=== PATIENT | male | born 1960 | race Asian ===

== ENCOUNTER → 2017-04-03 | Outpatient (CLI) | payer OTHER | END | disposition home or self-care (01) | LOC: C.ULTR 06:27 | DX: R10.9 Unspecified abdominal pain (principal) ==

== ENCOUNTER → 2017-05-05 | Outpatient (CLI) | payer OTHER ==
--- NOTE | 2017-05-05 16:40 | EXERCISE STRESS ECHO ---
*NOTICE TO RECEIVING DEMOCRAT AGENCY This information is strictly Confidential and protected under [place] law. [place] law prohibits you from making any further disclosure of this information unless further disclosure is expressly permitted by the written consent of the person to whom it pertains or is authorized by law. A general authorization for the release of medical or other information is not sufficient for this purpose. Hospital accepts no responsibility if the information is made available to any other person, INCLUDING THE PATIENT. Interpretation Summary * Name: YUE DAWKINS Study Date: 05/05/2017 10:22 AM BP: 116/71 mmHg * Patient Location: [facility] HR: 94 * : 1960 (M/d/yyyy) Gender: Male Height: 66 in * Age: 56 yrs Ethnicity: Weight: 222 lb * Ordering Physician: Benjamin Barragan * Referring Physician: Benjamin Barragan * Performed By: Celi Shook RDCS * * Reason For Study: Epigastric pain, rule out myocardial infarction * BSA: 2.1 m2 * -- Conclusions -- * Stress Echo: * 1. Negative stress echo for ischemia at 91 % MPHR. * 2. Negative exercise ECG for ischemia at 91 % MPHR. * 3. Appropriate blood pressure response to exercise. * 4. No arrhythmia. * 5. Study terminated due to fatigue. No chest pain reported. * 6. Fair exercise tolerance. * Echo: * 1. Normal left ventricular size and systolic function. EF 60-65%. No regional wall motion abnormalities. No left ventricular hypertrophy. Type 1 diastolic dysfunction. * 2. No significant valvular abnormalities visualized. * 3. Normal estimated right ventricular systolic pressure. * 4. No prior study available for comparison. Procedure Details * ECHOEX, CPT #[id number] * ECHO DOPPLER, CPT #[id number] * ECHO COLOR FLOW, CPT #[id number] Left Ventricle * The left ventricle is normal in size. * There is normal left ventricular wall thickness. * Left ventricular systolic function is normal. * Resting wall motion: Normal. Stress wall motion: Appropriate increase in Left ventricular systolic function and decrease in cavity size. No stress induced segmental wall motion abnormalities. * The left ventricular ejection fraction increases normally with stress. The left ventricular end-systolic cavity size reduces post-stress (normal response). The left ventricular wall motion with stress is normal. Right Ventricle * The right ventricle is normal in size and function. * The right ventricular systolic function is normal as assessed by tricuspid annular plane systolic excursion (TAPSE) (normal >1.5 cm). Atria * The left atrial size is normal. * Right atrial size is normal. * There is no evidence of atrial septal defect, but resolution does not allow assessment for a patent foramen ovale. Mitral Valve * The mitral valve leaflets appear normal. There is no evidence of stenosis, fluttering, or prolapse. * There is trace mitral regurgitation. Tricuspid Valve * The tricuspid valve is not well visualized, but is grossly normal. * There is no tricuspid stenosis. * There is trace tricuspid regurgitation. Aortic Valve * The aortic valve is trileaflet. * No hemodynamically significant valvular aortic stenosis. * No aortic regurgitation is present. Pulmonic Valve * The pulmonic valve is not well seen, but is grossly normal. * There is no significant pulmonary regurgitation. Great Vessels * The aortic root is normal size. * Normal pulmonary venous flow pattern.. Pericardium * There is no pericardial effusion. Stress Parameters * NSR at 76 bpm. * The stress ECG response was normal * No arrhythmia were noted with stress. * The stress portion of this study was personally supervised by the undersigned interpreting physician. * Rest heart rate was '94' BPM. * Rest blood pressure was '116/71' * Maximum heart rate achieved was 151 bpm. * Maximum heart rate was 91 % of maximum age-predicted heart rate. * Maximum blood pressure was '164/84' * Total exercise time was '06:22' * Maximum exercise MET level achieved was '7.50' METS * Maximum treadmill speed was '3.40' miles per hour. * Maximum treadmill elevation was '14.00'% grade. MMode 2D Measurements and Calculations IVSd 1.1 cm LVIDd 4.3 cm LVIDs 2.4 cm LVPWd 1.0 cm IVS/LVPW 1.1 FS 42.8 % EDV(Teich) 81.6 ml ESV(Teich) 21.0 ml EF(Teich) 74.3 % EDV(cubed) 77.7 ml ESV(cubed) 14.5 ml EF(cubed) 81.3 % LV mass(C)d 155.1 grams LV mass(C)dI 74.2 grams/m\S\2 SV(Teich) 60.6 ml SI(Teich) 29.0 ml/m\S\2 SV(cubed) 63.2 ml SI(cubed) 30.2 ml/m\S\2 Ao root diam 2.7 cm Ao root area 5.7 cm\S\2 ACS 2.0 cm LA dimension 4.0 cm LA/Ao 1.5 LVAd ap4 32.3 cm\S\2 LVLd ap4 8.1 cm EDV(MOD-sp4) 105.7 ml EDV(sp4-el) 109.5 ml LVAs ap4 17.9 cm\S\2 LVLs ap4 6.5 cm ESV(MOD-sp4) 41.4 ml ESV(sp4-el) 41.6 ml EF(MOD-sp4) 60.8 % EF(sp4-el) 62.0 % LVAd ap2 31.1 cm\S\2 LVLd ap2 8.5 cm EDV(MOD-sp2) 99.1 ml EDV(sp2-el) 96.7 ml LVAs ap2 18.5 cm\S\2 LVLs ap2 7.0 cm ESV(MOD-sp2) 43.5 ml ESV(sp2-el) 41.7 ml EF(MOD-sp2) 56.2 % EF(sp2-el) 56.9 % LVLd %diff 4.7 % EDV(MOD-bp) 102.5 ml LVLs %diff 6.6 % ESV(MOD-bp) 43.7 ml EF(MOD-bp) 57.4 % SV(MOD-sp4) 64.2 ml SI(MOD-sp4) 30.7 ml/m\S\2 SV(MOD-sp2) 55.6 ml SI(MOD-sp2) 26.6 ml/m\S\2 SV(MOD-bp) 58.9 ml SI(MOD-bp) 28.2 ml/m\S\2 SV(sp4-el) 67.9 ml SI(sp4-el) 32.5 ml/m\S\2 SV(sp2-el) 55.0 ml SI(sp2-el) 26.3 ml/m\S\2 Doppler Measurements and Calculations MV E max jane 70.1 cm/sec MV A max jane 74.8 cm/sec MV E/A 0.94 MV dec time 0.21 sec Ao V2 max 122.8 cm/sec Ao max PG 6.0 mmHg Ao max PG (full) 2.0 mmHg LV V1 max PG 4.0 mmHg LV V1 max 100.1 cm/sec PA V2 max 91.3 cm/sec PA max PG 3.3 mmHg TR max jane 244.6 cm/sec RVSP(TR) 26.9 mmHg RAP systole 3.0 mmHg
== END | disposition home or self-care (01) ==
LOC: C.CPL 10:12
PROVIDERS: ATTEND Family Medicine
DX: R10.9 Unspecified abdominal pain (principal)